=== PATIENT | female | born 1955 | race Caucasian/White ===

== ENCOUNTER 2016-10-08 14:12 | Emergency (ER) | payer OTHER ==
--- NOTE | ~2016-10-08 | CR229 ---
[facility]. [facility] A Service of [facility] RADIOLOGY TEXT RESULTS PATIENT: DARRON LING LOCATION: SED : 57 UNIT #: [id number] AGE: [address]: Josh Paz MD SEX: F ORDER DR: [id number] [address] [address] [id number] E MR#: [id number] Acc #: [id number] NAME: DARRON LING : 1955 SEX: F STUDY DATE/TIME: 10/08/2016 14:49 UNIT: SED ROOM: STUDY DESCRIPTION: CR Shoulder Min 2 View Lt Attending Physician: Josh Paz M.D. Ordering Physician: Josh Paz M.D. Primary Care Physician: Shonna Rouse M.D. MEDICAL IMAGING REPORT This report is preliminary unless electronic signature is present. EXAM Left shoulder series, 10/08/2016. HISTORY Fell at work. Slipped. Two hours prior to arrival, back pain/hip pain/left shoulder pain since Tuesday. FINDINGS AP internal-external rotation views of left shoulder presented with transscapular view. No traumatic fracture or malalignment. Acromioclavicular and glenohumeral joint relationships are normal. Periarticular soft tissues show no acute appearing abnormality. Evidence of prior augmentation mammoplasty. The visualized bony thorax shows no acute abnormality. The heart is [id number]-sv-[id number] limits of normal size. Lung volumes low with bronchovascular crowding. There is no clear indication of acute pulmonary disease on these limited views. Hand artifact over lower thorax on external attention view. If it would assist in patient management, and if the patient's symptoms persist, the left shoulder can be further evaluated with elective MRI if patient is a candidate for MRI. Dictated by... Oliverio Bauer M.D. THIS IS AN ELECTRONICALLY VERIFIED REPORT Oliverio Bauer M.D. at 10/09/2016 10:49 PM CELINA/charline TD: 10/08/2016 20:25 JOB #: [id number] [facility]. [facility] A Service of [facility] & [facility] RADIOLOGY TEXT RESULTS PATIENT: DARRON LING LOCATION: [facility] : [birth year] UNIT #: [id number] AGE: [address]: Josh Paz MD SEX: F ORDER DR: MEDICAL IMAGING REPORT Page 1 of 1
--- NOTE | ~2016-10-08 | CR206 ---
[facility]. [facility] A Service of [facility] & [facility] RADIOLOGY TEXT RESULTS PATIENT: DARRON LING LOCATION: SED : 57 UNIT #: [id number] AGE: [address]: Josh Paz MD SEX: F ORDER DR: [id number] [address] [address] [id number] E MR#: [id number] Acc #: [id number] NAME: DARRON LING : 1955 SEX: F STUDY DATE/TIME: 10/08/2016 14:49 UNIT: SED ROOM: STUDY DESCRIPTION: CR Pelvis 1 or 2 Views Attending Physician: Josh Paz M.D. Ordering Physician: Josh Paz M.D. Primary Care Physician: Shonna Rouse M.D. MEDICAL IMAGING REPORT This report is preliminary unless electronic signature is present. EXAM Pelvis series, 10/08/2016. HISTORY Pain, status post fall. Fell at work. Slipped. Back pain, hip pain, left shoulder pain since Tuesday, fell at work, slipped. Hip pain. FINDINGS AP radiograph of the pelvis is presented. Vtra-gw-ojycegla degenerative change in the lower lumbar spine. The bony ring of pelvis is intact. No fracture or traumatic malalignment. The visualized proximal femurs are intact. Periarticular soft tissues unremarkable. The visualized bowel gas pattern is normal. Dictated by... Oliverio Bauer M.D. THIS IS AN ELECTRONICALLY VERIFIED REPORT Oliverio Bauer M.D. at 10/09/2016 10:49 PM Jose J TD: 10/08/2016 20:45 JOB #: [id number] MEDICAL IMAGING REPORT Page 1 of 1
--- NOTE | ~2016-10-08 | CR181 ---
[facility] A Service of [facility] RADIOLOGY TEXT RESULTS PATIENT: DARRON LING LOCATION: SED : 57 UNIT #: [id number] AGE: [address]: Josh Paz MD SEX: F ORDER DR: [id number] [address] [address] [id number] E MR#: [id number] Acc #: [id number] NAME: DARRON LING. : 1955 SEX: F STUDY DATE/TIME: 10/08/2016 14:49 UNIT: SED ROOM: STUDY DESCRIPTION: CR Lumbar Spine 2 or 3 Views Attending Physician: Josh Paz M.D. Ordering Physician: Josh Paz M.D. Primary Care Physician: Shonna Rouse M.D. MEDICAL IMAGING REPORT This report is preliminary unless electronic signature is present. EXAM Lumbar spine series HISTORY Back pain. Fell at work 2 hours ago. Slipped. AP and lateral views of the lumbar spine are presented. The study is significantly degraded secondary to the patient's very large body habitus. COMPARISON STUDIES 07/17/2013 FINDINGS Stable mild levoscoliosis centered at mid lumbar spine. There are 6 non rib bearing lumbar vertebral segments. The lowest lumbar type vertebral segment, labelled L6 for purposes of this report, shows approximately 8-9 mm grade 1 anterolisthesis on the S1 level. This does not appear significantly changed from 2013 and is likely due to disc and facet degenerative changes at this level. There are moderate to marked facet degenerative changes throughout the mid to lower lumbar spine most pronounced L3-4, L4-5, L5-L6 and L6-S1. Vertebral body heights are normal. Moderate narrowing L4-5 intervertebral disc space. The visualized lower thoracic spine shows no acute abnormality. The visualized bony pelvis is intact. Visualized bowel gas pattern normal. No evidence of acute fracture. Dictated by... Oliverio Bauer M.D. THIS IS AN ELECTRONICALLY VERIFIED REPORT Oliverio Bauer M.D. at 10/09/2016 10:49 PM CELINA/chrissy [facility] A Service of [facility] & [facility] RADIOLOGY TEXT RESULTS PATIENT: DARRON LING LOCATION: [facility] : 57 UNIT #: [id number] AGE: [address]: Josh Paz MD SEX: F ORDER DR: TD: 10/08/2016 18:36 JOB #: [id number] MEDICAL IMAGING REPORT Page 1 of 1
[~2016-10-08 14:12] MED LIST: ACTOS; ACTOS PO; ALLERGY INJ SUBQ; ASPIRIN81 M1 PO; AZOR 10/20 MG T1 TAB PO; BACITRACIN3.5 GM TOP; BIOTIN5 MG; CALCIUM + D 6001 TA1; CALCIUM + D 6001 TA1 PO; CRESTOR; CRESTOR10 MG; CRESTOR10 MG PO; FISH OIL300 MG; FLEXERIL10 M1; FLEXERIL10 MG PO; FOLIC ACID1 MG; FOLIC ACID1 MG PO; GLUCOPHAGE XR500 MG; GLUCOPHAGE500 MG; KEFLEX500 MG PO; LORTAB 5/500 TA1 TA2; LORTAB 7.5-5001 TAB; LOTREL 10/20 CA1 CAP; LOTREL 10/20 CA1 CAP PO; MELOXICAM15 MG PO; METFORMIN HCL500 M1 PO; METHOTREXATE2.5 MG; METHOTREXATE2.5 MG PO; MOBIC; NEXIUM; NEXIUM PO; PIOGLITAZONE45 MG; TRAMADOL HCL50 M1 PO; VITAMIN C1000 M1 PO; VITAMIN C1000 M2; VITAMIN E1000 UNI1; VITAMIN E1000 UNI1 PO; ZETIA; ZETIA PO
== END 2016-10-08 15:38 | disposition home or self-care (01) ==
LOC: SED 14:12
DX: S46.912A Strain of unspecified muscle, fascia and tendon at shoulder and upper arm level, left arm, initial encounter (principal); S39.012A Strain of muscle, fascia and tendon of lower back, initial encounter; I10 Essential (primary) hypertension; Z79.899 Other long term (current) drug therapy; W01.0XXA Fall on same level from slipping, tripping and stumbling without subsequent striking against object, initial encounter; Y92.69 Other specified industrial and construction area as the place of occurrence of the external cause; Y99.0 Civilian activity done for income or pay
CPT/HCPCS: 72100; 72170; 73030; 99283